=== PATIENT | male | born 1980 | race Caucasian/White ===

== ENCOUNTER → 2024-01-15 14:35 | Outpatient (REF) | payer BC, SELFPAY | LOC: RAD 14:35 | PROVIDERS: ATTENDING PHYSICIAN Internal Medicine Gastroenterology; FAMILY PHYSICIAN Family Medicine | DX: R10.9 Unspecified abdominal pain (principal) | CPT/HCPCS: 74177; Q9967 ==

== ENCOUNTER 2024-11-06 08:22 | Emergency (ER) | payer BC, SELFPAY ==
[2024-11-06 08:25] VITALS: BP 163/93
--- NOTE | 2024-11-06 09:02 | ED.GENMED ---
History of Present Illness
General
Chief Complaint: Back Pain
Time Seen by Provider: 11/06/24 08:48
History of Present Illness
History of Present Illness:
44-year-old male with history of hypertension presents to the emergency department for evaluation of acute on chronic low back pain with left leg radiculopathy and paresthesias. He notes that he had an acute injury to the back approximately 2 weeks
ago while working on his car, pain has gradually worsened but over the past 48 hours has had increasing lower extremity radiculopathy. Denies any loss of bladder or bowel function. He is able to ambulate. Pain is worse with attempting to stand
up. Having difficulty sleeping.Chronically on tramadol, Celebrex, and tizanidine due to chronic neck pain
Past History
Past History
ED Past Medical History: Other (neck pain)
ED Past Surgical History: None
Social History
Living: with family
Review of Systems
Review of Systems
Allergies reviewed?: Yes
All Other Systems: ROS reviewed and negative except as documented in HPI and ROS
Phy Exam
Physical Exam
Physical Exam:
GEN: Well appearing, NAD, WDWN
HEENT: Oral mucosa moist, no scleral icterus
Cardiac: Regular rate
Lung: No respiratory distress, no tachypnea
MSK: No gross deformity or injuries. No reproducible tenderness to the midline lumbar spine or paraspinous musculature. Positive straight leg raise on the left. Bilateral lower extremity strength is 5 out of 5 in all hsieh, patellar reflexes 2+
bilaterally
Skin: Good color, no pallor or jaundice, no rashes
Neuro: AO x3, moves all extremities freely
Psych: Calm, cooperative
Course
Vital Signs
Initial and Last Documented VS:
Initial Vital Signs
Temp Pulse Resp Pulse Ox
97.6 F 78 18 99
11/06/24 08:24 11/06/24 08:24 11/06/24 08:24 11/06/24 08:24
Last Documented Vital Signs
Temp Pulse Resp BP Pulse Ox
97.6 F 78 16 163/93 99
11/06/24 08:24 11/06/24 08:24 11/06/24 09:24 11/06/24 08:25 11/06/24 08:24
MDM/Problems Addressed
MDM/Problems Addressed:
Findings consistent with lumbar radiculopathy most likely due to discogenic disease versus muscle strain. Patient is already maximized on NSAIDs, muscle relaxants, and opiates thus will treat with a 2-week course of prednisone. Recommend
outpatient pain and spine follow-up
*Critical Care Note
Total Time (30-74mins, 75-104mins- exclusive of procedures): Not Applicable
ED Attending Note
-
Portions of this chart may have been created with voice recognition software.� Occasional wrong word or��sound alike� substitutions may have occurred due to the inherent limitations of voice recognition software.
Discharge Plan
Departure
Patient Disposition: Home (Routine Discharge)
Date of Disposition: 11/06/24
Time of Disposition: 09:05
Patient with high blood pressure during this ER visit?: No
Discharge Problem:
Left lumbar radiculopathy
Instructions: Sciatica (DC)
Prescriptions:
New
prednisone 10 mg tablet
10 mg PO DIRECTED Qty: 43 0RF
Rx Instructions:
Once daily as follows (mg): 60, 60, 50, 50, 40, 40, 30, 30, 20, 20, 10, 10, 5, 5
No Action
tizanidine 2 MG tablet
2 mg PO TID
gabapentin 400 MG capsule
400 mg PO TID
tramadol 50 MG tablet
50 mg PO TID
verapamil 120 MG tablet
240 mg PO HS
tramadol 100 MG tablet extended release 24 hr
100 mg PO DAILY
diclofenac potassium 50 MG tablet
50 mg PO BID Qty: 20 0RF
Referrals:
Rob,Taqueria A., MD [Active] -
Karo Espino MD [Family Provider] -
Activity Restrictions/Additional Instructions:
Increase your tizanidine to 4 mg nightly. Do not take your Celebrex or naproxen while on the steroids
Interventions
Interventions:
*Risk Screen - Suicide Last Done: 11/06/24 08:26
*General Assessment Last Done: 11/06/24 08:26
*Neglect/Abuse Screening Last Done: 11/06/24 08:26
*ED- Fall Risk Assessment Last Done: 11/06/24 09:24
*ED COVID-19 Vaccine History Last Done: 11/06/24 09:22
*Nursing Disposition Last Done: 11/06/24 09:24
ED-Musculoskeletal Assessment Last Done: 11/06/24 09:22
Discharge Date and Time
Discharge Date/Time: 11/06/24 09:25
Print Language: [id number]
== END 2024-11-06 09:25 | disposition home or self-care (01) ==
LOC: EMR 08:22
PROVIDERS: EMERGENCY PHYSICIAN Emergency Medicine; FAMILY PHYSICIAN Family Medicine
DX: M54.16 Radiculopathy, lumbar region (principal); I10 Essential (primary) hypertension; Z79.899 Other long term (current) drug therapy
CPT/HCPCS: 99283